=== PATIENT | male | born 1970 | race Two or more races ===

== ENCOUNTER 2024-07-22 17:03 | Emergency (ER) | payer MEDICAID, SELFPAY ==
[2024-07-22 17:04] VITALS: BMI 27.4
[2024-07-22 17:32] VITALS: BP 149/96; PULSE 96; RESP 20; TEMP 36.7; O2SAT 99
--- NOTE | 2024-07-22 17:33 | XR_ITS ---
Examination: PA lateral chest 2 views Technique: Upright PA lateral chest 2 views Exam date and time: July 22, 2024 1810 hrs. Indications: Coughing beginning 4 days ago. Findings: Normal heart size No lobar pneumonia or pulmonary edema The osseous structures are intact Impression: No lobar pneumonia identified
--- NOTE | 2024-07-22 17:34 | PD.EDRME ---
Rapid Medical Screening Exam RME Arrival date/time: 07/22/24 17:03 54-year-old male presents emergency department complaint of cough, congestion and sore throat ongoing for the last few days Chief Complaint: Flu Like Symptoms Time Seen by Provider: 07/22/24 17:27 Vital signs: Vital Signs Temperature 98.0 F 07/22/24 17:32 Pulse Rate 96 07/22/24 17:32 Respiratory Rate 20 07/22/24 17:32 Blood Pressure 149/96 H 07/22/24 17:32 Pulse Oximetry (%) 99 07/22/24 17:32 Oxygen Delivery Method Room Air 07/22/24 17:32
[2024-07-22 18:20] LABS: Strep A Rapid Negative (Negative)
--- NOTE | 2024-07-22 19:38 | EDNOTE_ITS ---
Upper Respiratory Inf. RME/HPI General Chief Complaint: Flu Like Symptoms Stated Complaint: COUGH, FEVER, BODYACHES AND SORE THROAT Time Seen by Provider: 07/22/24 17:27 Arrival date/time: 07/22/24 17:03 Limitations: no limitations RME / HPI RME / HPI Narrative: 07/22/24 17:03 54-year-old male presents emergency department complaint of cough, congestion and sore throat ongoing for the last few days DR. CORNELIUS MAIN ED EVALUATION: 54 year old male presents to the Emergency Department with complaint of PMHx: Denies any PMHx, surgeries, daily medications, or known allergies. Social Hx: No tobacco, alcohol, or substance use. Related Data Previous Rx's ?Medication ?Instructions ?Recorded hydrocodone 5 mg-acetaminophen 325 1 tab PO Q6H PRN pain #10 tabs 08/22/20 mg tablet ([place]) ibuprofen 800 mg tablet 800 mg PO TID PRN pain #30 tabs 08/27/20 albuterol sulfate 90 mcg/actuation 2 puff inhalation Q6H PRN cough 5 07/22/24 aerosol inhaler days #8.5 grams oseltamivir 75 mg capsule (Tamiflu) 75 mg PO BID 5 days #10 caps 07/22/24 Allergies Allergy/AdvReac Type Severity Reaction Status Date / Time No Known Allergies Allergy Verified 07/22/24 17:07 Review of Systems Review of Systems Systems Reviewed: All systems reviewed, normal except as documented Past Medical History Past Medical History CARDIAC: Negative Congestive Heart Failure RESPIRATORY: Negative Chronic Obstructive Pulmonary Disease (COPD) GENITOURINARY: Negative Renal Disease ENDOCRINE: Negative Diabetes Mellitus Type 1 or Diabetes Mellitus Type 2 Social History SMOKING STATUS: Never smoker ED Exam General Limitations: Present no limitations General appearance: Present alert and in no apparent distress Head Head exam: Present atraumatic, normocephalic and normal inspection Eye Eye exam: Present normal appearance, PERRL and EOMI ENT ENT exam: Present normal exam, normal oropharynx and mucous membranes moist Neck Neck exam: Present normal inspection, full ROM and trachea midline Chest Chest inspection: Present normal inspection and symmetric chest wall rise Respiratory Respiratory exam: Present normal lung sounds bilaterally Cardiovascular Cardiovascular exam: Present regular rate, normal rhythm and normal heart sounds Abdominal Exam Abdominal exam: Present soft and normal bowel sounds Extremities Exam Extremities exam: Present normal inspection and full ROM Back Exam Back exam: Present normal inspection and full ROM Neurological Exam Neurological exam: Present alert, oriented X3 and CN II-XII intact Psychiatric Psychiatric exam: Present normal affect and normal mood Skin Skin exam: Present warm, dry, intact and normal color Course Quality Measures none Orders Category Date Time Status Bedside COVID-19 Antigen Test NOW Care 07/22/24 17:33 Active Bedside Influenza A&B Antigen Test NOW Care 07/22/24 17:33 Completed XR chest 2V Stat Exams 07/22/24 17:33 Completed Strep A Rapid Stat Lab 07/22/24 17:38 Completed Vital Signs Vital signs: Vital Signs Temperature 98.0 F 07/22/24 17:32 Pulse Rate 96 07/22/24 17:32 Respiratory Rate 20 07/22/24 17:32 Blood Pressure 149/96 H 07/22/24 17:32 Pulse Oximetry (%) 99 07/22/24 17:32 Oxygen Delivery Method Room Air 07/22/24 17:32 Upper Respiratory Infection MDM Narrative MDM Narrative:: I, Ara Morales, am scribing for and in the presence of Dr. Cornelius. I called you at home and told you to supervisor opening and picking your medications Patient data External records reviewed:: [facility] previous records (Reviewed last ED visit dated 08/27/20, discharged with the following: Fracture of shoulder.) Clinical information provided by:: patient Social determinants that could affect healthcare access:: none Patient has the following chronic illnesses:: Denies any PMHx, surgeries, daily medications, or known allergies. How is presenting disease/condition affected by chronic disease/condition?: no chronic disease Evaluation data The following diagnostics were reviewed and interpreted by me:: lab results and radiology exam(s) Lab and/or radiology exams considered but not ordered:: none Interpretation Summary: Procedure(s): XR chest 2V Accession Number(s): [id number] cc: Sena (KEESHA),Miguel THAO; Valeriy Cotton MD; Chapincito Sahni MD~ Examination: PA lateral chest 2 views Technique: Upright PA lateral chest 2 views Exam date and time: July 22, 2024 1810 hrs. Indications: Coughing beginning 4 days ago. Findings: Normal heart size No lobar pneumonia or pulmonary edema The osseous structures are intact Impression: No lobar pneumonia identified Dictated By: Chapincito Sahni MD Medications / Prescriptions Medications or Prescriptions considered but not ordered:: none Medication administrations:: see above if any Consultations Consultation(s) initiated? (list below): No Consultation #1 (Physician, Specialty, Details): no Diagnosis Upper Respiratory Differential Diagnosis: upper respiratory infection, croup, otitis media, viral infection, influenza and pharyngitis Most likely diagnosis given after review of the tests above:: Influenza Admission Indicated Admission indicated?: not indicated Admission Request Was there a request for admission?: No Disposition Plan Disposition Plan: other (specify) (eloped) Discharge Plan Plan Patient Disposition: Elopement Patient condition on transfer: Stable Prescriptions/Referrals Prescriptions/Med Rec: New oseltamivir [Tamiflu] 75 mg capsule 75 mg PO BID 5 Days Qty: 10 0RF albuterol sulfate 90 mcg/actuation HFA aerosol inhaler 2 puff inhalation Q6H PRN (Reason: cough) 5 Days Qty: 8.5 0RF Rx Instructions: administer with spacer No Action ibuprofen 800 mg tablet 800 mg PO TID PRN (Reason: pain) Qty: 30 0RF hydrocodone-acetaminophen [[place]] 5-325 mg tablet 1 tab PO Q6H MDD 4 PRN (Reason: pain) Qty: 10 0RF Referrals: Valeriy Cotton MD [Primary Care Provider] - In 1 week Problem List Clinical Impression: Eloped from emergency department, Influenza Patient/Caregiver Discharge Instructions Additional Instructions: I called you at home and told you to supervisor opening and picking your medications. Print Language: [place]ian
--- NOTE | 2024-07-22 20:45 | PC.NURSE ---
PT CALLED BACK TO A ROOM AND NO ANSWER
--- NOTE | 2024-07-22 21:00 | PC.NURSE ---
PT CALLED BACK TO A ROOM AND NO ANSWER
--- NOTE | 2024-07-22 21:12 | PC.NURSE ---
PT CALLED AND NO ANSWER
== END 2024-07-22 21:12 | disposition left against medical advice (07) ==
PROVIDERS: Nurse Practitioner Primary Care; Emergency Provider Emergency Medicine; PCP Family Medicine
DX: J11.1 Influenza due to unidentified influenza virus with other respiratory manifestations (principal); Z53.29 Procedure and treatment not carried out because of patient's decision for other reasons
CPT/HCPCS: 71046; 87400; 87651; 87811; 99283